=== PATIENT | female | born 1970 | race Caucasian/White ===

== ENCOUNTER 2022-09-12 16:07 | Emergency (ER) | payer SELFPAY ==
[2022-09-12 17:09] VITALS: BP 167/82; PULSE 98; RESP 16; TEMP 98.9; BMI 31.2
[2022-09-12] MEDS ORDERED: OFLOXACIN 0.3% OPHTHALMIC SOLUTION 5 ML BOTTLE OS ONE (17:25)
[2022-09-12] MEDS ORDERED: TETRACAINE 0.5% HCL 0.6ML DROPPER.BOTTLE OS ONE (17:25)
[2022-09-12] MEDS ORDERED: FLUORESCEIN NA 1 EA STRIP OS ONE (17:26)
[2022-09-12] MEDS ORDERED: CIPROFLOXACIN 0.3% EYE DROPS 5 ML BOTTLE ONE (17:27)
[2022-09-13] MEDS ORDERED: CIPROFLOXACIN 0.3% EYE DROPS 5 ML BOTTLE OS ONE (10:00)
== END 2022-09-12 17:35 | disposition home or self-care (01) ==
LOC: JERFT 16:07
DX: S05.02XA Injury of conjunctiva and corneal abrasion without foreign body, left eye, initial encounter (principal); W45.8XXA Other foreign body or object entering through skin, initial encounter
CPT/HCPCS: 99283-25